=== PATIENT | female | born 1965 | race Two or more races ===

== ENCOUNTER → 2021-11-08 | Outpatient (CLI) | payer BC ==
--- NOTE | 2021-11-09 03:29 | MR ---
EXAMINATION TYPE: MR knee RT wo con DATE OF EXAM: 11/08/2021 COMPARISON: None HISTORY: Rt knee swelling and locking [id number] Multiplanar multiecho imaging of the right knee without contrast. There is moderately large knee joint effusion. There is a very large popliteal cyst that measures 8 x 3 cm. The anterior and posterior cruciate ligaments are intact. The lateral meniscus appears intact. Medial meniscus appears intact. The collateral ligaments are intact. There is abnormal increased signal on the T2 images involving a large area of the lateral tibial cond yle. This extends to the articular surface. No definite fracture line seen. The distal femur is intac t. IMPRESSION: Large area of significant bone bruise involving the lateral tibial condyle and plateau. No definite f racture line seen. No evidence of ligamentous or meniscal tear. Minor spurring is seen in the lateral femoral condyle. large joint effusion and large popliteal cyst.
== END | disposition home or self-care (01) ==
LOC: RADMRIMAIN 08:07
PROVIDERS: ATTEND Orthopaedic Surgery
DX: M25.561 Pain in right knee (principal)